=== PATIENT | female | born 1965 | race Two or more races ===

== ENCOUNTER 2017-11-24 09:58 | Outpatient (CLI) | payer OTHER ==
[~2017-11-24] VITALS: Ht 170.2 cm; Wt 63.5 kg
== END 2017-11-24 10:15 | disposition home or self-care (01) ==
LOC: OFIC 805 09:58
DX: H60.8X3 Other otitis externa, bilateral (principal); H61.23 Impacted cerumen, bilateral

== ENCOUNTER 2017-11-24 12:10 | Outpatient (CLI) | payer OTHER | END 2017-11-24 12:11 | disposition home or self-care (01) | LOC: LAB 12:10 | DX: H60.90 Unspecified otitis externa, unspecified ear (principal) ==

== ENCOUNTER 2017-11-26 08:15 | Outpatient (CLI) | payer OTHER ==
[~2017-11-26] VITALS: Ht 152.4 cm; Wt 63.5 kg
[2017-12-03] MEDS ORDERED: SWIM EAR DRO29.57 ML OT (12:03)
== END 2017-11-26 08:30 | disposition home or self-care (01) ==
LOC: OFIC 805 08:15
DX: H60.8X3 Other otitis externa, bilateral (principal)

== ENCOUNTER → 2017-11-28 | Outpatient (CLI) | payer OTHER ==
[~2017-11-28] VITALS: Ht 152.4 cm; Wt 63.5 kg
[~2017-11-28] MED LIST: SWIM EAR DRO29.57 ML OT
== END | disposition home or self-care (01) ==
LOC: OFIC 805 08:20
DX: H60.8X3 Other otitis externa, bilateral (principal); H61.23 Impacted cerumen, bilateral

== ENCOUNTER 2017-12-03 15:16 | Outpatient (CLI) | payer OTHER ==
[~2017-12-03] VITALS: Ht 152.4 cm; Wt 63.5 kg
== END 2017-12-03 15:30 | disposition home or self-care (01) ==
LOC: OFIC 805 15:16
DX: H60.8X3 Other otitis externa, bilateral (principal); H61.23 Impacted cerumen, bilateral; J30.89 Other allergic rhinitis

== ENCOUNTER 2018-01-17 18:56 | Emergency (ER) | payer OTHER ==
[~2018-01-17] VITALS: Ht 170.2 cm; Wt 63.5 kg
== END 2018-01-17 21:30 | disposition home or self-care (01) ==
LOC: ER 18:56
DX: M54.89 Other dorsalgia (principal); N20.0 Calculus of kidney

== ENCOUNTER 2018-04-22 11:50 | Outpatient (CLI) | payer OTHER ==
[~2018-04-22] VITALS: Ht 152.4 cm; Wt 63.5 kg
[2018-04-22] MEDS ORDERED: FLONASE16 GM NASAL (12:59)
[2018-04-22] MEDS ORDERED: CEFUROXIME500 MG PO (12:59)
== END 2018-04-22 12:15 | disposition home or self-care (01) ==
LOC: OFIC 805 11:50
DX: J01.80 Other acute sinusitis (principal)

== ENCOUNTER 2018-12-12 08:05 | Outpatient (CLI) | payer OTHER ==
[~2018-12-12] VITALS: Ht 152.4 cm; Wt 63.5 kg
[~2018-12-12 08:05] MED LIST changes: +CEFUROXIME500 MG PO; +FLONASE16 GM NASAL
== END 2018-12-12 08:20 | disposition home or self-care (01) ==
LOC: OFIC 805 08:05
DX: H91.8X3 Other specified hearing loss, bilateral (principal); H61.23 Impacted cerumen, bilateral

== ENCOUNTER 2019-02-24 10:54 | Outpatient (CLI) | payer OTHER ==
[~2019-02-24] VITALS: Ht 152.4 cm; Wt 63.5 kg
[2019-02-24] MEDS ORDERED: CLOTRIMAZOLE30 ML OTIC (12:33)
== END 2019-02-24 11:15 | disposition home or self-care (01) ==
LOC: OFIC 805 10:54
DX: H60.8X3 Other otitis externa, bilateral (principal); H61.23 Impacted cerumen, bilateral; J31.0 Chronic rhinitis